=== PATIENT | male | born 1970 | race Caucasian/White ===

== ENCOUNTER 2018-11-24 12:32 | Emergency (ER) | payer BC, MEDICARE, MEDICAID ==
[2018-11-24 13:00] VITALS: BP 115/73
[2018-11-24] MEDS ORDERED: Cyclobenzaprine TAB* 10 MG PO ONE (13:12)
[2018-11-24] MEDS ORDERED: Ketorolac *IM* INJ* 60 MG/2 ML VIAL IM ONE (13:12)
--- NOTE | 2018-11-24 13:12 | UC ---
Back Pain HPI - HPI Summary HPI Summary: sudden sharp-electric pain in R low back while lifting a heavy object 2 days ago. feels ok if very still but gets pain and spasms with certain movements. tx with biofreeze, warm soaks and some motrin. - History of Current Complaint Chief Complaint: UCBackPain Stated Complaint: S/P FALL, RIGHT LOWER BACK PAIN Time Seen by Provider: 11/24/18 12:49 Hx Obtained From: Patient Pain Intensity: 6 Aggravating Factor(s): Movement Alleviating Factor(s): Rest Associated Signs And Symptoms: Positive: Other - no saddle anesthesia. Negative : Fever, Weakness, Numbness, Tingling, Abdominal Pain, Flank Pain, Bladder Incontinence, Bowel Incontinence - Risk Factors Cauda Equina Risk Factors: Negative - Allergies/Home Medications Allergies/Adverse Reactions: Allergies Allergy/AdvReac Type Severity Reaction Status Date / Time famotidine [From Pepcid] Allergy Anaphylatic Verified 11/24/18 12:55 Shock haloperidol [From Haldol] Allergy Anaphylatic Verified 11/24/18 12:55 Shock PMH/Surg Hx/FS Hx/Imm Hx Psychological History: Other - mental health - Surgical History Surgical History: Yes Surgery Procedure, Year, and Place: Endartectomy, Left Knee Arthoscopy, Appendectomy - Family History Known Family History: Positive: Non-Contributory - Social History Alcohol Use: None Substance Use Type: Marijuana Substance Use Comment - Amount & Last Used: Occasionally Smoking Status (MU): Heavy Every Day Tobacco Smoker Type: Cigarettes Amount Used/How Often: 1 PPD Length of Time of Smoking/Using Tobacco: Since Age 14 Review of Systems All Other Systems Reviewed And Are Negative: Yes Constitutional: Negative: Fever, Chills Skin: Negative: Rash Musculoskeletal: Positive: Decreased ROM - low back Neurological: Negative: Weakness, Paresthesia, Numbness Physical Exam Triage Information Reviewed: Yes Appearance: Well-Appearing Vital Signs: Initial Vital Signs Temp 98.3 F 11/24/18 12:50 Pulse 93 11/24/18 12:50 Resp 20 11/24/18 12:50 BP 115/73 11/24/18 12:50 Pulse Ox 99 11/24/18 12:50 Vital Signs Reviewed: Yes Eyes: Positive: Conjunctiva Clear ENT: Positive: Normal ENT inspection Neck: Positive: Supple, Nontender, No Lymphadenopathy, Other: - c-spine non tender. Respiratory: Positive: Lungs clear, Normal breath sounds, No respiratory distress Cardiovascular: Positive: RRR, No Murmur Abdomen Description: Positive: Nontender, No Organomegaly, Soft. Negative: Pulsatile Mass Bowel Sounds: Positive: Present Musculoskeletal: Positive: Other: - Back: flat over lumbar region(loss of lordosis). no rash. spine non tender. tender over R paraspinal mm's in lumbar region. limited rom low back due to spasms-observed during exam. no saddle anesthesia. 5/5 strength, 2+ reflexs and sensation intact x4. slow but steady gait. Neurological: Positive: Alert Psychological: Positive: Age Appropriate Behavior Skin Exam: Normal Skin: Negative: Rashes Back Pain Course/Dx - Differential Dx/Diagnosis Differential Diagnosis/HQI/PQRI: Other - no concern for infection, fx or acute abdomen. no cauda equina. Provider Diagnosis: Back pain Discharge - Sign-Out/Discharge Documenting (check all that apply): Patient Departure All imaging exams completed and their final reports reviewed: No Studies - Discharge Plan Condition: Stable Disposition: HOME Prescriptions: Cyclobenzaprine TAB* [Flexeril 10 MG TAB*] 10 mg PO TID #10 tab Naproxen [Naprosyn 500 mg tab] 500 mg PO BID 5 Days #10 tablet Patient Education Materials: Acute Low Back Pain (ED) Referrals: Jose Mcginnis PA [Primary Care Provider] - 7 Days - Billing Disposition and Condition Condition: STABLE Disposition: Home
== END 2018-11-24 13:25 | disposition home or self-care (01) ==
LOC: UCCORT 12:32
DX: M54.5 Low back pain (principal); F17.210 Nicotine dependence, cigarettes, uncomplicated
CPT/HCPCS: 96372; 99202; A9270-GY; G0463; J1885